=== PATIENT | male | born 1965 | race Caucasian/White ===

== ENCOUNTER → 2016-11-24 | Outpatient (CLI) | payer BC ==
[~2016-11-24] MED LIST: ASCA500 PO; ASPI325T45 PO; CEFU1TAB35 PO; GLC5 PO; GLC500 PO; LCTX PO; NAPR1TAB9 PO; VENL150C56 PO; VTMD1000 PO
--- NOTE | 2016-11-24 14:43 | DIAGNOSTIC IMAGING REPORT ---
TWO VIEW CHEST CLINICAL HISTORY: Cough. FINDINGS: PA and lateral chest radiographs are compared to study dated 12/05/2015. The examination is modestly degraded by large body habitus. The heart is top normal for projection. The mediastinal contour is within normal limits. The lungs and pleural spaces are clear. There is no pneumothorax. The bony thorax appears intact. IMPRESSION: No active disease in the chest. Electronically signed by: Wu Morgan M.D. 11/24/2016 2:41 PM Dictated Date/Time: 11/24/2016 2:41 PM
== END | disposition home or self-care (01) ==
LOC: C.RAD1850 14:26
PROVIDERS: ATTEND Family Medicine
DX: R05 Cough (principal)

== ENCOUNTER → 2017-01-31 | Outpatient (CLI) | payer BC ==
--- NOTE | 2017-01-31 15:17 | DIAGNOSTIC IMAGING REPORT ---
KUB CLINICAL HISTORY: Right-sided flank pain. Hematuria. COMPARISON STUDY: CT of the abdomen and pelvis December 05, 2015. FINDINGS: Left pelvic calcifications were shown to represent phleboliths on prior CT. No urinary calculi are identified. Bowel gas pattern is normal. IMPRESSION: 1. No urinary calculi identified. 2. No evidence of a bowel obstruction. Electronically signed by: Will Anglin M.D. 01/31/2017 3:16 PM Dictated Date/Time: 01/31/2017 3:13 PM
== END | disposition home or self-care (01) ==
LOC: C.RAD1850 14:29
PROVIDERS: ATTEND Family Medicine
DX: R10.9 Unspecified abdominal pain (principal)

== ENCOUNTER → 2017-02-01 | Outpatient (CLI) | payer BC ==
--- NOTE | 2017-02-01 12:55 | DIAGNOSTIC IMAGING REPORT ---
RENAL ULTRASOUND CLINICAL HISTORY: Right flank pain with trace blood in urine. COMPARISON STUDY: CT of the abdomen and pelvis December 05, 2015 and KUB January 31, 2017. TECHNIQUE: Sonography of the kidneys and the urinary bladder was performed. FINDINGS: Increased hepatic echogenicity suggests fatty infiltration. The right kidney measures 12.8 cm in maximal dimension and the left kidney measures 12.5 cm. There is mild right hydroureteronephrosis. A 5 mm echogenic focus along the right posterior aspect of the bladder could reflect a right ureterovesical junction calculus. 2 left renal cysts are noted. The largest measures 3 cm. Neither ureteral jet was identified. IMPRESSION: 1. Mild right hydroureteronephrosis possibly due to a 5 mm right ureterovesical junction calculus. 2. Two left renal cysts. Electronically signed by: Will Anglin M.D. 02/01/2017 12:54 PM Dictated Date/Time: 02/01/2017 12:50 PM
== END | disposition home or self-care (01) ==
LOC: C.ULTR 11:42
PROVIDERS: ATTEND Family Medicine
DX: N13.30 Unspecified hydronephrosis (principal); R10.9 Unspecified abdominal pain; N28.1 Cyst of kidney, acquired

== ENCOUNTER → 2017-02-24 | Outpatient (CLI) | payer BC ==
--- NOTE | 2017-02-24 12:13 | DIAGNOSTIC IMAGING REPORT ---
RENAL ULTRASOUND HISTORY: HX OF Stone, f/u STUDY COMPARISON: Renal ultrasound 02/01/2017. FINDINGS: Right kidney: 12.4 cm. No hydronephrosis. Normal corticomedullary differentiation and cortical thickness. Left kidney: 13.6 cm. No hydronephrosis. Normal corticomedullary differentiation and cortical thickness. There are 2 cysts with the largest in the upper pole measuring 2.7 cm. Bladder: No bladder wall thickening. The bilateral ureteral jets were identified. IMPRESSION: No renal or ureteral stones. No hydronephrosis. Electronically signed by: Abelino Hancock M.D. 02/24/2017 12:12 PM Dictated Date/Time: 02/24/2017 12:10 PM
== END | disposition home or self-care (01) ==
LOC: C.ULTR 11:26
PROVIDERS: ATTEND Family Medicine
DX: N20.0 Calculus of kidney (principal)